=== PATIENT | male | born 1985 | race Hispanic/Latino ===

== ENCOUNTER 2021-11-22 11:49 | Emergency (ER) | payer OTHER ==
[~2021-11-22] VITALS: Ht 167.6 cm; Wt 78.0 kg
[2021-11-22] MEDS ORDERED: FAMOTIDINE 20MG TAB PO ONE (12:30)
[2021-11-22] MEDS ORDERED: SOLU-MEDROL 125MG VIAL IM ONE (12:30)
[2021-11-22] MEDS ORDERED: DIPHENHYDRAMINE HCL 25 MG CAPSULE PO ONE (12:30)
[2021-11-22] MEDS ORDERED: CETI1SOL17 PO (12:37)
[2021-11-22] MEDS ORDERED: PRED20TA3 PO (12:37)
[2021-11-22] MEDS ORDERED: FAMO-136 PO (12:37)
[2021-11-22 13:45] VITALS: BP 116/78
== END 2021-11-22 14:10 | disposition home or self-care (01) ==
LOC: EDH 11:49
DX: L25.9 Unspecified contact dermatitis, unspecified cause (principal); Z79.899 Other long term (current) drug therapy
CPT/HCPCS: 96372; 99283; J2930; Q0163

== ENCOUNTER 2022-11-24 19:30 | Emergency (ER) | payer SELFPAY ==
[~2022-11-24] VITALS: Ht 167.6 cm; Wt 74.8 kg
[~2022-11-24 19:30] MED LIST: CETI1SOL17 PO; FAMO-136 PO; PRED20TA3 PO
[2022-11-24 19:58] VITALS: BP 120/60
[2022-11-24] MEDS ORDERED: PRED5TAB PO (20:10)
== END 2022-11-24 20:27 | disposition home or self-care (01) ==
LOC: EDH 19:30
DX: L25.9 Unspecified contact dermatitis, unspecified cause (principal); Z79.899 Other long term (current) drug therapy